=== PATIENT | male | born 1985 | race Caucasian/White ===

== ENCOUNTER → 2016-08-08 | Outpatient (CLI) | payer BC ==
[~2016-08-08] MED LIST: Iopamidol 755 MG/ML 500 ML Multipack Bottle IVPUSH STA
--- NOTE | 2016-08-08 11:30 | CT ---
CT of the abdomen and pelvis with and without contrast. HISTORY: Pain TECHNIQUE: Axial CT images were obtained of the abdomen and pelvis without and following the adminis tration of 100 mL of [id number]. Coronal and sagittal reconstructions obtained. FINDINGS: The lung bases are clear, no pleural effusion. The liver, spleen, adrenal glands, and pancreas appear unremarkable for noncontrast examination. Cho lecystectomy clips are noted. There is no bulky retroperitoneal lymphadenopathy. No abdominal ascite s. There are no calcifications noted within the kidneys or along the courses of the ureters bilaterally . The large and small bowel are normal in caliber without evidence of obstruction. The appendix appear s normal. There is no bulky pelvic lymphadenopathy. No free fluid. No free air. The urinary bladder appears normal. The visualized osseous structures appear normal. IMPRESSION: No acute findings within the abdomen or pelvis.
== END ==
LOC: MW.DI 09:20
PROVIDERS: ATTEND Surgery
DX: K62.9 Disease of anus and rectum, unspecified (principal)
CPT/HCPCS: 74178; Q9967